=== PATIENT | male | born 1985 | race American Indian/Alaskan Native ===

== ENCOUNTER 2020-07-13 17:25 | Emergency (ER) | payer SELFPAY ==
[2020-07-13 18:24] VITALS: BP 138/92
--- NOTE | 2020-07-13 18:43 | Emergency Department Report ---
ED Lower Extremity HPI - General Chief Complaint: Extremity Injury, Lower Stated Complaint: PAIN IN LEFT FOOT Time Seen by Provider: 07/13/20 18:27 Source: patient Mode of arrival: Ambulatory Limitations: No Limitations - History of Present Illness MD Complaint: foot injury -: Gradual Injury: Foot: Left Type of Injury: unknown (Was running with fianc and Ms. Ervin rolled foot causing pain to the lateral aspect of the foot since the onset 4 days ago) Place: home Severity: mild, moderate Improves With: nothing Worsens With: movement, palpation Context: running Associated Symptoms: able to partially bear weight Treatments Prior to Arrival: bandage - Related Data Previous Rx's Medication Instructions Recorded Last Taken Type Ketorolac [Toradol] 10 mg PO Q6H PRN #15 tablet 07/13/20 Unknown Rx Allergies Allergy/AdvReac Type Severity Reaction Status Date / Time No Known Allergies Allergy Unverified 07/13/20 18:18 ED Review of Systems ROS: Stated complaint: PAIN IN LEFT FOOT Other details as noted in HPI Comment: All other systems reviewed and negative ED Past Medical Hx - Past Medical History Additional medical history: FX LEFT ANKLE - Surgical History Past Surgical History?: No - Medications Home Medications: Home Medications Medication Instructions Recorded Confirmed Last Taken Type Ketorolac [Toradol] 10 mg PO Q6H PRN #15 tablet 07/13/20 Unknown Rx ED Physical Exam - General Limitations: No Limitations General appearance: alert, in no apparent distress - Head Head exam: Present: atraumatic, normocephalic - Eye Eye exam: Present: normal appearance, PERRL, EOMI Pupils: Present: normal accommodation - ENT ENT exam: Present: normal exam, mucous membranes moist - Neck Neck exam: Present: normal inspection - Respiratory Respiratory exam: Present: normal lung sounds bilaterally. Absent: respiratory distress - Cardiovascular Cardiovascular Exam: Present: regular rate, normal rhythm. Absent: systolic murmur, diastolic murmur, rubs, gallop - GI/Abdominal GI/Abdominal exam: Present: soft, normal bowel sounds - Rectal Rectal exam: Present: deferred - Extremities Exam Extremities exam: Present: normal inspection, normal capillary refill - Back Exam Back exam: Present: normal inspection. Absent: CVA tenderness (R), CVA tenderness (L), muscle spasm, paraspinal tenderness - Neurological Exam Neurological exam: Present: alert, oriented X3, CN II-XII intact, normal gait - Psychiatric Psychiatric exam: Present: normal affect, normal mood. Absent: anxious, flat affect - Skin Skin exam: Present: warm, dry, intact, normal color. Absent: rash ED Course Vital Signs 07/13/20 18:23 Temperature 97.9 F Pulse Rate 92 H Respiratory 18 Rate Blood Pressure 138/92 O2 Sat by Pulse 97 Oximetry ED Lower Extremity MDM - Radiology Data Radiology results: report reviewed No new fracture noted. Old fracture is present. No no increased spacing between the tarsals to suggest any ligamentous damage. Critical care attestation.: If time is entered above; I have spent that time in minutes in the direct care of this critically ill patient, excluding procedure time. ED Disposition Clinical Impression: Right foot strain Disposition: - TO HOME OR SELFCARE Is pt being admited?: No Does the pt Need Aspirin: No Condition: Stable Instructions: Elastic Bandage and RICE Therapy, How to Use Cold Therapy, [id number], How to Use a Stirrup Ankle Brace Prescriptions: Ketorolac [Toradol] 10 mg PO Q6H PRN #15 tablet PRN Reason: Pain Referrals: LENY MOSS MD [Staff Physician] - 3-5 Days
--- NOTE | 2020-07-13 18:54 | XRay Report ---
Left foot 3 views INDICATION: Pain FINDINGS: MTP joints appear intact. Old fracture deformity within the fifth metatarsal. No acute frac ture is definitely seen. Signer Name: Chava Jaramillo MD Signed: 07/13/2020 6:49 PM Workstation Name: [id number]
== END 2020-07-13 19:47 | disposition home or self-care (01) ==
LOC: ED 17:25
DX: S96.911A Strain of unspecified muscle and tendon at ankle and foot level, right foot, initial encounter (principal); Z79.899 Other long term (current) drug therapy; X50.9XXA Other and unspecified overexertion or strenuous movements or postures, initial encounter; Y93.89 Activity, other specified; Y92.89 Other specified places as the place of occurrence of the external cause; Y99.8 Other external cause status
CPT/HCPCS: 99283